=== PATIENT | female | born 1975 | race African-American/Black ===

== ENCOUNTER 2018-06-26 13:19 | Inpatient (IN) | payer OTHER ==
[~2018-06-26] VITALS: Ht 167.6 cm; Wt 105.9 kg
[~2018-06-26 13:19] MED LIST: AMOXICILLIN875 M1 PO; BENTYL20 MG PO; BENZONATATE200 M1 PO; BLM PO; DELTASONE20 MG PO; EDARBYCLOR 40-1 EAC1 PO; FLEXERIL10 MG PO; HYDRODIURIL 112.5 M1 PO; IBUPROFEN800 M1 PO; LABETALOL HCL300 M1 PO; LEVSIN-SL0.125 MG PO; LEVSIN0.125 MG PO; MEDROL DOSEPAK1 PAC PO; NORVASC10 M1 PO; PERCOCET 325 MG1 TA2 PO; PERCOCET 325 MG1 TAB PO; SPIRONOLACTONE50 MG PO; TEGRETOL200 MG PO; TESSALON PERLE100 MG PO; VITAMIN D250000 UNIT PO; ZITHROMAX250 M2 PO; ZOFRAN ODT4 M1 PO; ZOFRAN4 M1 SL
[2018-06-26 15:06] LABS: ABSOLUTE BASOPHIL COUNT 0 /CUMM (0.0-0.2); ABSOLUTE EOSINOPHIL COUNT 0 /CUMM (0.0-0.7); ABSOLUTE GRANULOCYTE CT 9.8 /CUMM (1.4-6.5); ABSOLUTE LYMPH COUNT 0.9 /CUMM (1.2-3.4); ABSOLUTE MONOCYTE COUNT 0.5 /CUMM (0.10-0.60); BASOPHIL % 0.4 % (0.0-2.0); EOSINOPHIL % 0.3 % (0-5); GRANULOCYTE % 86.5 % (42.2-75.2); HEMATOCRIT 41.3 % (37-47); MEAN CORPUSCULAR HGB 24.3 PG (27.0-31.0); MEAN CORPUSCULAR HGB CONC 31.1 G/DL (33.0-37.0); MEAN CORPUSCULAR VOLUME 78.3 FL (81.0-99.0); MEAN PLATELET VOLUME 8.9 FL (7.4-10.4); PLATELET COUNT 345 /CUMM (130-400); RBC DISTRIBUTION WIDTH 16.4 % (11.5-14.5); RED BLOOD CELL CT 5.28 /CUMM (4.20-5.40); WHITE BLOOD CELL COUNT 11.3 /CUMM (4.8-10.8)
--- NOTE | 2018-06-26 15:25 | CT SCAN REPORT ---
EXAMINATION: CT ABDOMEN AND PELVIS WITHOUT CONTRAST CLINICAL INFORMATION: Swelling in the lower abdomen, cellulitis. Rule out deep abscess. Status post tubal ligation. COMPARISON: CT scan of the abdomen and pelvis dated 04/22/2015 and 01/03/2014. TECHNIQUE: Multidetector volumetric imaging was performed from the superior aspect of the liver through the pubic symphysis. Sagittal and coronal reformatted images were obtained on the technologist workstation. DLP: 1581.99 mGy-cm. FINDINGS: LUNG BASES: The visualized lung bases are unremarkable. LIVER, GALLBLADDER, AND BILIARY TREE: The liver is normal in size, shape, and attenuation. No focal hepatic lesion on noncontrast imaging. No biliary ductal dilatation is present. The gallbladder is unremarkable with no evidence of radiopaque gallstones, gallbladder wall thickening, or obvious pericholecystic inflammatory changes. PANCREAS: Unremarkable on noncontrast imaging. SPLEEN, ADRENAL GLANDS: Unremarkable on noncontrast imaging. KIDNEYS AND URETERS: The kidneys are normal in size, shape, and attenuation. No hydronephrosis, hydroureter, or calculi seen. No perinephric stranding. BLADDER: Unremarkable. PELVIC VISCERA: The patient is status post total abdominal hysterectomy and probable oophorectomy. No suspicious adnexal mass. No focal fluid collection or pelvic abscess seen. GASTROINTESTINAL TRACT: There is moderate sigmoid colonic diverticulosis with no evidence of acute diverticulitis. The small and large bowel are otherwise unremarkable. The appendix is unremarkable. ABDOMINAL WALL: There is extensive cutaneous and subcutaneous thickening and edema seen in the anterior lower abdominal pannus, consistent with clinical history given of cellulitis. No defined abscess cavity is seen and the findings are confined to the superficial soft tissues and do not extend down to the abdominal wall. LYMPH NODES, VASCULAR: Unremarkable. OSSEOUS STRUCTURES: There is moderate degenerative disc disease at the lumbosacral junction with disc space narrowing and bulky marginal spur formation, which also projects posteriorly into the spinal canal without causing significant spinal stenosis. Mild posterior disc osteophyte complex is also seen at at L2-3, similar to prior exam. Multilevel vertebral spondylosis is seen. IMPRESSION: 1. Extensive cutaneous and superficial subcutaneous soft tissue edema is seen in the lower abdominal pannus, consistent with clinical history of cellulitis. No defined abscess collection is seen. 2. Status post total abdominal hysterectomy with no evidence of intra-abdominal abscess. 3. Moderate sigmoid colonic diverticulosis without evidence of acute diverticulitis.
--- NOTE | 2018-06-26 18:28 | ED SKIN/ALLERGY COMPLAINT ---
History of Present Illness General Chief Complaint: Abdominal Pain/Flank Pain Stated Complaint: LOWER ABD PAIN Source: patient Exam Limitations: no limitations Vital Signs & Intake/Output Vital Signs & Intake/Output Vital Signs Date Time Temp Pulse Resp B/P B/P Pulse O2 O2 Flow FiO2 Mean Ox Delivery Rate 06/27 0106 100.7 107 20 119/56 91 Room Air 06/26 2052 100 Room Air 06/26 2051 99.2 104 20 125/71 97 Room Air 06/26 1841 99.0 110 20 132/81 98 Room Air 06/26 1527 90 18 140/79 99 Room Air 06/26 1408 99.9 92 18 141/81 96 Room Air ED Intake and Output 06/27 0000 06/26 1200 Intake Total 100 Output Total Balance 100 Intake, IV 100 Patient 313 lb Weight Weight Reported by Patient Measurement Method Allergies Coded Allergies: metoclopramide (ANXIETY 01/30/18) Reconcile Medications Amlodipine (Norvasc 5MG Tab) 5 MG TABLET 1 TAB PO DAILY BP (Reported) Amoxicillin 875 MG TABLET 1 TAB PO BID PNA Azilsartan Med/Chlorthalidone (Edarbyclor 40-25 MG Tablet) 1 EACH TABLET 1 TAB PO DAILY HEART (Reported) Azithromycin (Zithromax) 250 MG TABLET 1 DP PO AD bronchitis 2 the first day followed by 1 for days 2-5 Benzonatate 200 MG CAPSULE 1 CAP PO TIDPRN cough Carbamazepine (Tegretol) 200 MG TABLET 1 TAB PO BID TRIGENINAL NEURALGIA ( Reported) Ergocalciferol (Vitamin D2) (Vitamin D2) 50,000 UNIT CAPSULE 1 CAP PO QW SUPPLEMENT (Reported) Hydrochlorothiazide (Hydrodiuril 12.5 MG Tab) 12.5 MG CAPSULE 1 CAP PO DAILY BP (Reported) Hyoscyamine Sulfate (Levsin-Sl) 0.125 MG TAB.SUBL 1 TAB PO Q6P PRN abd pain Ibuprofen 800 MG TABLET 1 TAB PO TID pain Labetalol Hydrochloride (Labetalol HCl) 200 MG TAB 1 TAB PO BID BP (Reported) Ondansetron (Zofran Odt) 4 MG TAB.RAPDIS 1 TAB PO Q6P PRN nausea Prednisone (Deltasone) 20 MG TABLET 1 TAB PO DAILY BRONCHITIS Spironolactone 50 MG TABLET 1 TAB PO DAILY BP (Reported) Triage Note: 42 Y/O FEMALE C/O SUDDEN ONSET PAIN TO ENTIRE ABDOMEN, ONSET 1030AM. PT STATES SHE ROLLED OVER IN BED AND NOTICED ACUTE PAIN TO STOMACH. PT REPORTS NAUSEA, DENIES VOMITING. TEMP 99.9 IN TRIAGE. EVAL'D BY GLORIA REYNOLDS IN TRIAGE - SKIN IN C/O PAIN NOTED TO BE RED WITH WARMTH Triage Nurses Notes Reviewed? yes Onset: Abrupt Duration: day(s): Timing: recent history : No Patient currently breastfeeds: No HPI: 42-year Female comes into the emergency room for further evaluation of swelling and pain to abdomen. Associated fever chills body aches. Denies any trauma.. Patient has a history of diabetes. Pain is sharp throbbing. Continuous. (Nick Phipps) Past History Travel History Traveled to [place] past 21 day No Medical History Any Pertinent Medical History? see below for history Neurological: NONE EENT: NONE Cardiovascular: hypertension, HEART MURMUR Respiratory: NONE Gastrointestinal: NONE Hepatic: NONE Renal: chronic kidney disease Musculoskeletal: rheumatoid arthritis Psychiatric: NONE Endocrine: diabetes Blood Disorders: NONE Cancer(s): NONE Surgical History Surgical History: , ADRENALECTOMY TUBAL LIGATION Psychosocial History What is your primary language American Tobacco Use: Never used Family History Hx Contributory? No (Nick Phipps) Review of Systems Review of Systems Constitutional: Reports: no symptoms. EENTM: Reports: no symptoms. Respiratory: Reports: no symptoms. Cardiovascular: Reports: no symptoms. GI: Reports: no symptoms. Genitourinary: Reports: no symptoms. Musculoskeletal: Reports: see HPI. Skin: Reports: see HPI. Neurological/Psychological: Reports: no symptoms. Hematologic/Endocrine: Reports: no symptoms. Immunologic/Allergic: Reports: no symptoms. All Other Systems: Reviewed and Negative (Nick Phipps) Physical Exam Physical Exam General Appearance: well developed/nourished, mild distress Head: atraumatic Eyes: Bilateral: normal appearance. Ears, Nose, Throat: normal ENT inspection, hearing grossly normal Neck: normal inspection Respiratory: normal breath sounds, no respiratory distress Cardiovascular: regular rate/rhythm Gastrointestinal: soft, tenderness, large area of erythema covering the entire lower abdominal wall below the umbilicus to right lower suprapubic and left lower quadrants, warm to touch, well demarcated borders, erythema, Back: normal inspection Extremities: normal inspection, normal range of motion, no edema Neurologic/Psych: awake, alert, oriented x 3, normal mood/affect Skin: rash (see above) (Luis Enrique CASTRO,Nick) Progress Differential Diagnosis: abscess/cellulitis, sepsis, abscess, Plan of Care: Orders Procedure Date/time Status Consistent Carbohydrate 3 06/27 B Active CBC WITHOUT DIFFERENTIAL 06/27 06 Active BASIC ELECTROLYTES PLUS BUN&CR 06/27 06 Active FingerStick- Glucose 06/27 UNK Active Saline Lock 06/26 2346 Active Pathway - chart 06/26 2346 Active House Staff 06/26 2346 Active Code Status 06/26 2346 Active Weight 06/26 2236 Active Teach/Educate 06/26 2236 Active Pain Treatment and Response 06/26 2236 Active Nutritional Intake, Monitor 06/26 2236 Active Isolation 06/26 2236 Active Patient Care Conference 06/26 2236 Active Activity/Ambulation 06/26 2236 Active Patient Data 06/26 1953 Active Misc Message 06/26 194 Active ED Holding Orders 06/26 194 Active Admit to inpatient 06/26 194 Active Vital Signs 06/26 194 Active Code Status 06/26 194 Complete Intake & Output 06/26 1825 Active LACTIC ACID 06/26 1712 Complete BLOOD CULTURE 06/26 1412 Active URINALYSIS 06/26 1412 Complete LIPASE 06/26 1412 Complete LACTIC ACID 06/26 1412 Complete WESTERGREN SED RATE 06/26 1412 Complete C-REACTIVE PROTEIN 06/26 1412 Complete COMPREHENSIVE METABOLIC PANEL 06/26 1412 Complete CBC WITHOUT DIFFERENTIAL 06/26 1412 Complete VTE Mechanical Prophylaxis 06/26 UNK Active Vital Signs 06/26 UNK Active Heat/Cold Therapy 06/26 UNK Active Activity/Ambulation 06/26 UNK Active Current Medications Sig/Ana Start time Last Medication Dose Stop Time Status Admin Polyethylene Glycol 17 GM AT BEDTIME 06/27 2100 AC (Miralax) Senna/Docusate Sodium 1 TAB AT BEDTIME 06/27 2100 AC (Senokot S) Enoxaparin Sodium 40 MG DAILY 06/27 0900 AC (Lovenox) Insulin Aspart 0 TIDAC 06/27 0800 UNVr (NovoLOG) Cefazolin Sodium 1,000 MG Q8 06/27 06 AC (Kefzol-Ancef Inj) Acetaminophen 650 MG Q6P PRN 06/26 2345 UNVr (Tylenol) Acetaminophen 1,000 MG Q6P PRN 06/26 234 UNVr (Ofirmev) Hydromorphone HCl 0.5 MG Q4P PRN 06/26 234 AC (Dilaudid) Laboratory Tests 06/26/18 1800: Lactic Acid 1.6, Urine Color YEL, Urine Clarity CLEAR, Urine pH 5.5, Ur Specific [place] >= 1.030, Urine Protein NEG, Urine Ketones NEG, Urine Nitrite NEG, Urine Bilirubin NEG, Urine Urobilinogen 0.2, Ur Leukocyte Esterase NEG, Ur Microscopic EXAM NOT REQUIRED, Urine Hemoglobin NEG, Urine Glucose NEG 06/26/18 1455: Anion Gap 10, Estimated GFR 36 L, BUN/Creatinine Ratio 13.1, Glucose 98, Lactic Acid 1.5, Calcium 9.5, Total Bilirubin 0.4, AST 16, ALT 22, Alkaline Phosphatase 67, C-Reactive Prot, Quant 0.7, Total Protein 7.4, Albumin 4.0, Globulin 3.4, Albumin/Globulin Ratio 1.2, Lipase 32, CBC w Diff MAN DIFF ORDERED, RBC 5.28, MCV 78.3 L, MCH 24.3 L, MCHC 31.1 L, RDW 16.4 H, MPV 8.9, Gran % 86.5 H, Lymphocytes % 8.4 L, Monocytes % 4.4, Eosinophils % 0.3, Basophils % 0.4, Absolute Granulocytes 9.8 H, Absolute Lymphocytes 0.9 L, Absolute Monocytes 0.5, Absolute Eosinophils 0, Absolute Basophils 0, Platelet Estimate ADEQUATE, Poikilocytosis FEW, Anisocytosis 1+, Target Cells FEW, ESR Westergren 22 H Microbiology 06/26 1800 BLOOD: Blood Culture - RECD 06/26 1455 BLOOD: Blood Culture - RECD Diagnostic Imaging: Viewed by Me: CT Scan. Discussed w/RAD: CT Scan. Radiology Impression: PATIENT: IBRAHIMA MILLER PRESENT AGE: 42 PATIENT ACCOUNT NO: [id number] : 77 LOCATION: [facility] ORDERING PHYSICIAN: Nick CASTRO SERVICE DATE: 06/26/18 EXAM TYPE : CAT - CT ABD & PELVIS W/O IV CONTRAS EXAMINATION: CT ABDOMEN AND PELVIS WITHOUT CONTRAST CLINICAL INFORMATION: Swelling in the lower abdomen, cellulitis. Rule out deep abscess. Status post tubal ligation. COMPARISON: CT scan of the abdomen and pelvis dated 04/22/2015 and 01/03/2014. TECHNIQUE: Multidetector volumetric imaging was performed from the superior aspect of the liver through the pubic symphysis. Sagittal and coronal reformatted images were obtained on the technologist workstation. DLP: 1581.99 mGy-cm. FINDINGS: LUNG BASES: The visualized lung bases are unremarkable. LIVER, GALLBLADDER, AND BILIARY TREE: The liver is normal in size, shape, and attenuation. No focal hepatic lesion on noncontrast imaging. No biliary ductal dilatation is present. The gallbladder is unremarkable with no evidence of radiopaque gallstones, gallbladder wall thickening, or obvious pericholecystic inflammatory changes. PANCREAS: Unremarkable on noncontrast imaging. SPLEEN, ADRENAL GLANDS: Unremarkable on noncontrast imaging. KIDNEYS AND URETERS: The kidneys are normal in size, shape, and attenuation. No hydronephrosis, hydroureter, or calculi seen. No perinephric stranding. BLADDER: Unremarkable. PELVIC VISCERA: The patient is status post total abdominal hysterectomy and probable oophorectomy. No suspicious adnexal mass. No focal fluid collection or pelvic abscess seen. GASTROINTESTINAL TRACT: There is moderate sigmoid colonic diverticulosis with no evidence of acute diverticulitis. The small and large bowel are otherwise unremarkable. The appendix is unremarkable. ABDOMINAL WALL: There is extensive cutaneous and subcutaneous thickening and edema seen in the anterior lower abdominal pannus, consistent with clinical history given of cellulitis. No defined abscess cavity is seen and the findings are confined to the superficial soft tissues and do not extend down to the abdominal wall. LYMPH NODES, VASCULAR : Unremarkable. OSSEOUS STRUCTURES: There is moderate degenerative disc disease at the lumbosacral junction with disc space narrowing and bulky marginal spur formation, which also projects posteriorly into the spinal canal without causing significant spinal stenosis. Mild posterior disc osteophyte complex is also seen at at L2-3, similar to prior exam. Multilevel vertebral spondylosis is seen. IMPRESSION: 1. Extensive cutaneous and superficial subcutaneous soft tissue edema is seen in the lower abdominal pannus, consistent with clinical history of cellulitis. No defined abscess collection is seen. 2. Status post total abdominal hysterectomy with no evidence of intra-abdominal abscess. 3. Moderate sigmoid colonic diverticulosis without evidence of acute diverticulitis. DICTATED BY: Donna Vega MD DATE/TIME DICTATED:06/26/181509 GENERATION MECHANIC HELPER:JOSE DATE/TIME TRANSCRIBED:06/26/181509 CONFIDENTIAL, DO NOT COPY WITHOUT APPROPRIATE AUTHORIZATION. <Electronically signed in Other Vendor System> SIGNED BY: Donna Vega MD 06/26/18 1525 (Nick Phipps) Departure Departure Disposition: STILL A PATIENT Condition: Stable Clinical Impression Primary Impression: Cellulitis, abdominal wall Referrals: Corona Oropeza MD (PCP/Family) Departure Forms: Customer Survey General Discharge Information Admission Note Spoke With: Josh Duke MD Documentation of Exam: Documentation of any treatments & extenuating circumstances including Concerns Regarding Discharge (functional status, medication knowledge or non-compliance, living conditions, etc.) that warrant an admission rather than observation: Patient will require IV antibiotics. Diabetic. High risk. Vomiting here in the emergency room. Medically not safe for discharge. (Nick Phipps) Admission Note Documentation of Exam: Documentation of any treatments & extenuating circumstances including Concerns Regarding Discharge (functional status, medication knowledge or non-compliance, living conditions, etc.) that warrant an admission rather than observation: PA/BORDER MEASURER AND CUTTER Co-Sign Statement Statement: ED Attending supervision documentation- [X] I saw and evaluated the patient. I have also reviewed all the pertinent lab results and diagnostic results. I agree with the findings and the plan of care as documented in the PA's/BORDER MEASURER AND CUTTER's documentation. [X] I have reviewed the ED Record and agree with the PA's/BORDER MEASURER AND CUTTER's documentation. [] Additions or exceptions (if any) to the PAs/BORDER MEASURER AND CUTTER's note and plan are summarized below: [Patient to be admitted for IV fluids, IV antibiotics, endocrine consult] (Loreta WALLACE,Silvio Rodríguez)
--- NOTE | 2018-06-26 20:32 | History & Physical ---
Francisco JavierRai 06/26/182031: General Information and HPI MD Statement: I have seen and personally examined IBRAHIMA MILLER and documented this H&P. The patient is a 42 year old F who presented with a patient stated chief complaint of [stomach area sargent]. Source of Information: patient Exam Limitations: no limitations History of Present Illness: 42 year old morbidly obese female with history of diabetes mellitus, not on insulin, and CKD stage III presents with pain on her abdomen, involving her panniculus. Around 10:30am this morning, while the patient was preparing for work, she felt severe, burning pain in her panniculus that felt like her intestines were twisting and caused her to vomit twice. The patient felt like she could hardly walk as a result of this pain, and so she came to be seen in the ED. She additionally felt bodily chills and a warm sensation overlying the panniculus. She denied chest pain, diaphoresis, light-headedness, diarrhea. She denied any prior history of skin infections, any recent trauma to the area, sick contacts. She is a non-smoker, reports social ETOH use and denies other illicit drugs. Allergies/Medications Allergies: Coded Allergies: metoclopramide (ANXIETY 01/30/18) Compliance With Home Meds: GOOD Past History Travel History Traveled to [place] past 21 day No Medical History Neurological: NONE EENT: NONE Cardiovascular: hypertension, HEART MURMUR Respiratory: NONE Gastrointestinal: NONE Hepatic: NONE Renal: chronic kidney disease Musculoskeletal: rheumatoid arthritis Psychiatric: NONE Endocrine: diabetes Blood Disorders: NONE Cancer(s): NONE Surgical History Surgical History: , ADRENALECTOMY TUBAL LIGATION Review of Systems Review of Systems Constitutional: Reports: chills. Denies: diaphoresis, fever, weakness. Cardiovascular: Denies: chest pain, edema, palpitations, peripheral edema. Respiratory: Denies: cough, short of breath, wheezing. GI: Reports: abdominal pain (superficial), vomiting. Denies: constipation, diarrhea , nausea. Skin: Reports: erythema (pannus, lower abdomen). Denies: lesions. Neurological/Psychological: Denies: confusion, headache, numbness, paresthesia, tingling. Exam & Diagnostic Data Last 24 Hrs of Vital Signs/I&O Vital Signs Date Time Temp Pulse Resp B/P B/P Pulse O2 O2 Flow FiO2 Mean Ox Delivery Rate 06/27 0106 100.7 107 20 119/56 91 Room Air 06/26 2052 100 Room Air 06/26 2051 99.2 104 20 125/71 97 Room Air 06/26 1841 99.0 110 20 132/81 98 Room Air 06/26 1527 90 18 140/79 99 Room Air 06/26 1408 99.9 92 18 141/81 96 Room Air Intake & Output 06/27 0800 06/27 0000 06/26 1600 Intake Total 100 Output Total Balance 100 Intake, IV 100 Patient 141.974 kg 141.974 kg Weight Weight Reported by Patient Reported by Patient Measurement Method Physical Exam General Appearance Alert, Oriented X3, Cooperative, No Acute Distress Skin Erythematous area overlying the lower abdominal panniculus Skin Temp/Moisture Exam: Warm/Dry HEENT Atraumatic, PERRLA, EOMI, Mucous Membr. moist/pink Cardiovascular Regular Rate, Normal S1, Normal S2, No Murmurs Lungs Clear to Auscultation, Normal Air Movement Abdomen Normal Bowel Sounds, Soft, Tender to light touch on the lower abdomen Last 24 Hrs of Labs/Kwasi: Laboratory Tests 06/26/18 1800: Lactic Acid 1.6, Urine Color YEL, Urine Clarity CLEAR, Urine pH 5.5, Ur Specific [place] >= 1.030, Urine Protein NEG, Urine Ketones NEG, Urine Nitrite NEG, Urine Bilirubin NEG, Urine Urobilinogen 0.2, Ur Leukocyte Esterase NEG, Ur Microscopic EXAM NOT REQUIRED, Urine Hemoglobin NEG, Urine Glucose NEG 06/26/18 1455: Anion Gap 10, Estimated GFR 36 L, BUN/Creatinine Ratio 13.1, Glucose 98, Lactic Acid 1.5, Calcium 9.5, Total Bilirubin 0.4, AST 16, ALT 22, Alkaline Phosphatase 67, C-Reactive Prot, Quant 0.7, Total Protein 7.4, Albumin 4.0, Globulin 3.4, Albumin/Globulin Ratio 1.2, Lipase 32, CBC w Diff MAN DIFF ORDERED, RBC 5.28, MCV 78.3 L, MCH 24.3 L, MCHC 31.1 L, RDW 16.4 H, MPV 8.9, Gran % 86.5 H, Lymphocytes % 8.4 L, Monocytes % 4.4, Eosinophils % 0.3, Basophils % 0.4, Absolute Granulocytes 9.8 H, Absolute Lymphocytes 0.9 L, Absolute Monocytes 0.5, Absolute Eosinophils 0, Absolute Basophils 0, Platelet Estimate ADEQUATE, Poikilocytosis FEW, Anisocytosis 1+, Target Cells FEW, ESR Westergren 22 H Microbiology 06/26 1800 BLOOD: Blood Culture - RECD 06/26 1455 BLOOD: Blood Culture - RECD Assessment/Plan Assessment: 42 year old morbidly obese female with history of diabetes mellitus and CKD stage III presenting with pain and erythema of her panniculus, likely representing cellulitis. Patient was afebrile upon presentation, but had slight leukocytosis with left- shift. CT Abdomen/Pelvis: Extensive cutaneous and superficial subcutaneous soft tissue edema is seen in the lower abdominal pannus, consistent with clinical history of cellulitis. No defined abscess collection is seen. Problems: 1. Cellulitis 2. Morbid obesity 3. CKD stage III 4. Diabetes mellitus Plan: -Admit to general medicine -Begin Cefazolin 1000mg IV Q8H -No abscess or drainable collection is found to culture, monitor response to antibiotics -Insulin sliding scale -Hgb A1C -Consider infectious disease consult if cellulitis worsens Full code Diabetic diet ALPS & heparin DVT ppx As Ranked By This Provider Problem List: 1. Abdominal pain 2. Chronic kidney disease 3. Cellulitis Core Measures/Misc (06/26) Acute Coronary Syndrome ACS Diagnosis: No Congestive Heart Failure Congestive Heart Failure Diagnosis No Cerebrovascular Accident CVA/TIA Diagnosis: No VTE (View Protocol) VTE Risk Factors Obesity No Mechanical VTE Prophylaxis d/t N/A MechProphylax Ordered No VTE Pharm Prophylaxis d/t NA PharmProphylax ordered Sepsis (View protocol) Sepsis Present: No If YES complete Sepsis Event Note If YES complete Sepsis Event Note Servando Stock 06/26/18 2205: Core Measures/Misc (06/26) Sepsis (View protocol) If YES complete Sepsis Event Note If YES complete Sepsis Event Note Attending MD Review Statement Attending Statement Attending Assessment/Plan: Addendum by . Patient was seen and examined at bedside today ( 06/26/18) at 8:30Pm. Reviewed the history physical done by the resident. Reviewed the past medical family, family, social history. ROS: 10 point system reviewed and negative except as described above. See the resident note for exam. On my exam: Patient is moderately obese, not in distress. Large abdominal pannus. Area redness, warm to touch, mildly tender in the lower abdominal wall. No obvious drainage, fluctuations, open wounds. Vitals, labs reviewed. a/p: #Abdominal wall cellulitis. No signs of fluid collection or abscess. #Morbid obesity. #Diabetes? #HTN- cr is at baseline, and k is stable, can c/w arb, aldactone and norvasc, monitor bp. # CKD-3, cr was 1.6-at bas[facility]il[facility], watch as pt is on hctz, arb and aldactone at home. Plan: -We will put on cefazolin 1 g every 8 hourly. Monitor if does not improve and consider vancomycin. -Get A1c. Check home medications, continue the sliding scale for now. Can resume home diabetic medications she is on at home. -Weight loss and exercise, diet control was suggested to the patient. Reviewed with the resident. Agree with the rest of the plan as per resident's note. Dr.Ravinder Gale MD. Hospitalist. Pager: [phone], cell: [phone]. Zaire WALLACE,Otf 06/27/18 0184: General Information and HPI Allergies/Medications Home Med list Amlodipine Besylate (Norvasc) 10 MG TABLET 1 TAB PO DAILY HTN (Reported) Amoxicillin 875 MG TABLET 1 TAB PO BID PNA Azilsartan Med/Chlorthalidone (Edarbyclor 40-25 MG Tablet) 1 EACH TABLET 1 TAB PO DAILY HEART (Reported) Azithromycin (Zithromax) 250 MG TABLET 1 DP PO AD bronchitis 2 the first day followed by 1 for days 2-5 Benzonatate 200 MG CAPSULE 1 CAP PO TIDPRN cough Carbamazepine (Tegretol) 200 MG TABLET 1 TAB PO BID TRIGENINAL NEURALGIA ( Reported) Ergocalciferol (Vitamin D2) (Vitamin D2) 50,000 UNIT CAPSULE 1 CAP PO QW SUPPLEMENT (Reported) Hyoscyamine Sulfate (Levsin-Sl) 0.125 MG TAB.SUBL 1 TAB PO Q6P PRN abd pain Ibuprofen 800 MG TABLET 1 TAB PO TID pain Labetalol HCl 300 MG TABLET 1 TAB PO TID HTN (Reported) Ondansetron (Zofran Odt) 4 MG TAB.RAPDIS 1 TAB PO Q6P PRN nausea Prednisone (Deltasone) 20 MG TABLET 1 TAB PO DAILY BRONCHITIS Spironolactone 50 MG TABLET 1 TAB PO DAILY BP (Reported) Core Measures/Misc (06/26) Sepsis (View protocol) If YES complete Sepsis Event Note If YES complete Sepsis Event Note Resident Review Statement Resident Statement: examined this patient, discussed with supply chain intern, agreed with supply chain intern, reviewed EMR data (avail), amended to note Other Findings: Patient is a 42-year-old female with past medical history significant for hypertension, diabetes, CKD presenting this admission with chief complaint of stomach burning. Patient reports that at approximately 10:30 AM on day of admission she started experiencing severe abdominal pain which she characterizes as a burning sensation across her lower abdomen. Reports that the pain started she could barely walk. Denies fever however reports that she did feel warm and reports chills. States she had nausea and 2 episodes of nonbloody emesis in the ED. Patient denies any trauma or cuts or bug bites to the area. Denies any history of skin or soft tissue infections in the past. Denies chest pain, palpitations, shortness of breath, constipation/diarrhea. Patient works as a SALES PROJECT COORDINATOR. Denies any sick contacts. Patient has a cat however denies any scratches or bites. Denies any recent travel. Patient in the ED he received IV Unasyn 3 g 1, morphine 4 mg IV 1, Zofran 4 mg IV 1. Physical exam and labs/imaging as above Patient is a 42-year-old morbidly obese female with past medical history significant for diabetes and chronic kidney disease presenting with a one-day history of abdominal pain, erythema, warmth, tenderness to palpation of her lower abdomen. Findings consistent for cellulitis. CT scan was done which was negative for any abscess or gas. Plan: Admitted to general med Started on cefazolin 1 g every 8 hours Follow-up blood cultures Area of erythema was marked. If patient does not improve consider broadening coverage to vancomycin. Continue home medications DVT prophylaxis: Alps, heparin Code: Full code Diet: Heart healthy
--- NOTE | 2018-06-27 06:25 | PN- Housestaff ---
Yenny Soto 06/27/18 0625: Subjective Follow-up For: Lower Abdominal Cellulitis CKD Stage III Diabetes Subjective: Pt seen and examined at bedside this morning. She has significant burning pain 8 /10 localized to the lower abdomen with the site marked. Slight erythema present with warmth and tenderness to touch. Patient febrile at 100.7 at 1AM this morning with increasing leukocytosis. Otherwise denies nausea, vomiting, diarrhea, shortness of breath or chest pain. Review of Systems Constitutional: Denies: see HPI. Objective Last 24 Hrs of Vital Signs/I&O Vital Signs Date Time Temp Pulse Resp B/P B/P Pulse O2 O2 Flow FiO2 Mean Ox Delivery Rate 06/27 930 98.9 100 20 140/73 06/27 0930 98.9 100 20 140/73 06/27 0930 98.9 100 20 140/73 06/27 0930 98.9 100 20 140/73 96 Room Air 06/27 0625 99.0 97 18 128/78 96 Room Air 06/27 0106 100.7 107 20 119/56 91 Room Air 06/26 2052 100 Room Air 06/26 2051 99.2 104 20 125/71 97 Room Air 06/26 1841 99.0 110 20 132/81 98 Room Air 06/26 1527 90 18 140/79 99 Room Air 06/26 1408 99.9 92 18 141/81 96 Room Air Intake & Output 06/27 1600 06/27 0800 06/27 0000 Intake Total 100 100 Output Total Balance 100 100 Intake, IV 100 100 Patient 313 lb Weight Weight Reported by Patient Measurement Method Physical Exam General Appearance: Alert, Oriented X3, Cooperative, Mild Distress Skin: lower abdomen marked with pen; slight erythema; no drainage/pus or abscess formation Skin Temp/Moisture Exam: Warm/Dry HEENT: Mucous Membr. moist/pink Neck: Supple Cardiovascular: Normal S1, Normal S2 Lungs: Clear to Auscultation, Normal Air Movement Abdomen: tender to palpation at sight of erythema marked with pen; no drainage/ pus; normal bowel sounds Neurological: Normal Speech Extremities: No Edema Vascular: Normal Pulses, Pulses Symmetrical Current Medications: Current Medications Sig/Ana Start time Last Medication Dose Route Stop Time Status Admin Acetaminophen 0 .STK-MED ONE 06/27 0130 DC IV Acetaminophen 650 MG Q6P PRN 06/26 2345 AC PO Acetaminophen 1,000 MG Q6P PRN 06/26 2345 AC 06/27 IV 0145 Amlodipine Besylate 10 MG DAILY 06/27 0900 AC 06/27 PO 0930 Ampicillin Sodium/ 0 .STK-MED ONE 06/26 1812 DC Sulbactam Sodium .ROUTE Ampicillin Sodium/ 3,000 MG ONCE ONE 06/26 1545 DC 06/26 Sulbactam Sodium IV 06/26 1614 1817 Sodium Chloride 100 ML Carbamazepine 200 MG BID 06/27 0900 AC 06/27 PO 0930 Cefazolin Sodium 1,000 MG Q8 06/27 0600 AC 06/27 IV 0610 Cefazolin Sodium 0 .STK-MED ONE 06/27 0553 DC .ROUTE Chlorthalidone 25 MG DAILY 06/27 0900 AC 06/27 PO 0930 Enoxaparin Sodium 40 MG DAILY 06/27 0900 CAN SC Heparin Sodium 5,000 UNIT Q8 06/27 0600 AC 06/27 (Porcine) SC 0608 Heparin Sodium 0 .STK-MED ONE 06/27 0553 DC (Porcine) .ROUTE Hydromorphone HCl 0.5 MG Q4P PRN 06/26 2345 AC IV Insulin Aspart 0 TIDAC 06/27 0800 AC SC Labetalol HCl 300 MG TID 06/27 0900 AC 06/27 PO 0930 Losartan Potassium 25 MG DAILY 06/27 0900 AC 06/27 PO 0930 Morphine Sulfate 0 .STK-MED ONE 06/26 2325 DC .ROUTE Morphine Sulfate 6 MG ONCE ONE 06/26 2315 DC 06/26 IV 06/26 2316 2326 Morphine Sulfate 0 .STK-MED ONE 06/26 1852 DC .ROUTE Morphine Sulfate 4 MG ONCE ONE 06/26 1830 DC 06/26 IV 06/26 183 185 Ondansetron HCl 4 MG ONCE ONE 06/26 1915 DC 06/26 IV 06/26 191 185 Ondansetron HCl 0 .STK-MED ONE 06/26 185 DC .ROUTE Polyethylene Glycol 17 GM AT BEDTIME 06/27 2100 AC PO Senna/Docusate Sodium 1 TAB AT BEDTIME 06/27 2100 AC PO Spironolactone 50 MG DAILY 06/27 0900 AC 06/27 PO 0930 Last 24 Hrs of Lab/Kwasi Results Last 24 Hrs of Labs/Mics: Laboratory Tests 06/27/18 0605: Anion Gap 6, Estimated GFR 33 L, BUN/Creatinine Ratio 11.8, Hemoglobin A1c 6.3 H, CBC w Diff MAN DIFF ORDERED, RBC 4.59, MCV 77.8 L, MCH 25.1 L, MCHC 32.2 L , RDW 16.0 H, MPV 8.9, Gran % 86.4 H, Lymphocytes % 8.3 L, Monocytes % 5.2, Eosinophils % 0.1, Basophils % 0, Absolute Granulocytes 11.2 H, Segmented Neutrophils 84 H, Absolute Lymphocytes 1.1 L, Lymphocytes 10 L, Monocytes 6, Absolute Monocytes 0.7 H, Absolute Eosinophils 0, Absolute Basophils 0, Platelet Estimate Z, Hypochromic-Microcytic 1+, Anisocytosis 1+, Microcytic Cells 1+, Ovalocytes FEW, Fld Total RBCs Counted 100 06/26/18 1800: Lactic Acid 1.6, Urine Color YEL, Urine Clarity CLEAR, Urine pH 5.5, Ur Specific [place] >= 1.030, Urine Protein NEG, Urine Ketones NEG, Urine Nitrite NEG, Urine Bilirubin NEG, Urine Urobilinogen 0.2, Ur Leukocyte Esterase NEG, Ur Microscopic EXAM NOT REQUIRED, Urine Hemoglobin NEG, Urine Glucose NEG 06/26/18 1455: Anion Gap 10, Estimated GFR 36 L, BUN/Creatinine Ratio 13.1, Glucose 98, Lactic Acid 1.5, Calcium 9.5, Total Bilirubin 0.4, AST 16, ALT 22, Alkaline Phosphatase 67, C-Reactive Prot, Quant 0.7, Total Protein 7.4, Albumin 4.0, Globulin 3.4, Albumin/Globulin Ratio 1.2, Lipase 32, CBC w Diff MAN DIFF ORDERED, RBC 5.28, MCV 78.3 L, MCH 24.3 L, MCHC 31.1 L, RDW 16.4 H, MPV 8.9, Gran % 86.5 H, Lymphocytes % 8.4 L, Monocytes % 4.4, Eosinophils % 0.3, Basophils % 0.4, Absolute Granulocytes 9.8 H, Absolute Lymphocytes 0.9 L, Absolute Monocytes 0.5, Absolute Eosinophils 0, Absolute Basophils 0, Platelet Estimate ADEQUATE, Poikilocytosis FEW, Anisocytosis 1+, Target Cells FEW, ESR Westergren 22 H Microbiology 06/26 1800 BLOOD: Blood Culture - RECD 06/26 1455 BLOOD: Blood Culture - RECD Assessment/Plan Assessment: 42 year old morbidly obese female with history of diabetes mellitus and CKD stage III presenting with pain and erythema of her panniculus, likely representing cellulitis. Patient was afebrile upon presentation, but had slight leukocytosis with left-shift. CT Abdomen/Pelvis: Extensive cutaneous and superficial subcutaneous soft tissue edema is seen in the lower abdominal pannus, consistent with clinical history of cellulitis. No defined abscess collection is seen. 06/27: Day 1 IV Antibiotics on Cefazolin. Febrile 100.7 1AM this morning. Leukocytosis 12.9 today which has elevated from admission. HbA1C: 6.3. PROBLEM LIST: 1. Cellulitis 2. Morbid Obesity 3. CKD Stage III 4. Diabetes Mellitus 5. Hypertension PLAN: * Continue Cefazolin 1G IV Q8, broaden as necessary * ISS wtih accu-checks * Continue home anti-hypertensives: aldactone, losartan, labetalol, clorothiladone, norvasc * Continue carbamazipine for trigeminal neuralgia Code Status: Full Code Diet: Diabetic Diet DVT PPx: ALPS + Heparin Problem List: 1. Chronic kidney disease 2. Abdominal pain 3. Cellulitis, abdominal wall Pain Ratin Pain Location: lower abdominal skin Pain Goal: Pain 4 or less Pain Plan: as per pain pathway Tomorrow's Labs & Rationales: cbc bep Renetta WALLACE,Burak 06/27/18 1648: Attending MD Review Statement Attending Statement Attending MD Statement: examined this patient, discuss w/resident/PA/SALESPERSON RECREATIONAL VEHICLES, agreed w/resident/PA/SALESPERSON RECREATIONAL VEHICLES, reviewed EMR data (avail), discussed with nursing, amended to note Attending Assessment/Plan: Patient seen and examined. Lying in bed. Still complaining of significant lower abdominal pain. Noted to be febrile earlier. Leukocytosis persisted on labs. On examination she has an area of erythema lower abdomen. Erythema is more intense in the suprapubic area with mild induration. No open area. No discharge. No fluctuance palpable. CT abdomen showed no evidence of abscess collection. We will continue therapy for cellulitis and monitor for improvement. Continue pain regimen.
[2018-06-27 06:27] LABS: ABSOLUTE BASOPHIL COUNT 0 /CUMM (0.0-0.2); ABSOLUTE EOSINOPHIL COUNT 0 /CUMM (0.0-0.7); ABSOLUTE GRANULOCYTE CT 11.2 /CUMM (1.4-6.5); ABSOLUTE LYMPH COUNT 1.1 /CUMM (1.2-3.4); ABSOLUTE MONOCYTE COUNT 0.7 /CUMM (0.10-0.60); BASOPHIL % 0 % (0.0-2.0); EOSINOPHIL % 0.1 % (0-5); GRANULOCYTE % 86.4 % (42.2-75.2); MEAN CORPUSCULAR HGB 25.1 PG (27.0-31.0); MEAN CORPUSCULAR HGB CONC 32.2 G/DL (33.0-37.0); MEAN CORPUSCULAR VOLUME 77.8 FL (81.0-99.0); MEAN PLATELET VOLUME 8.9 FL (7.4-10.4); PLATELET COUNT 287 /CUMM (130-400); RED BLOOD CELL CT 4.59 /CUMM (4.20-5.40); WHITE BLOOD CELL COUNT 12.9 /CUMM (4.8-10.8)
[2018-06-27 06:32] LABS: HEMATOCRIT 35.7 % (37-47)
[2018-06-27 10:41] VITALS: BP 129/79
[2018-06-27 14:33] VITALS: BP 111/49
[2018-06-27 22:43] VITALS: BP 132/73
[2018-06-28 07:03] VITALS: BP 127/77
[2018-06-28 09:27] LABS: ABSOLUTE BASOPHIL COUNT 0 /CUMM (0.0-0.2); ABSOLUTE EOSINOPHIL COUNT 0 /CUMM (0.0-0.7); ABSOLUTE GRANULOCYTE CT 10.7 /CUMM (1.4-6.5); ABSOLUTE LYMPH COUNT 1.1 /CUMM (1.2-3.4); ABSOLUTE MONOCYTE COUNT 0.7 /CUMM (0.10-0.60); BASOPHIL % 0 % (0.0-2.0); EOSINOPHIL % 0.1 % (0-5); HEMATOCRIT 35.3 % (37-47); MEAN CORPUSCULAR HGB 24.5 PG (27.0-31.0); MEAN CORPUSCULAR HGB CONC 31.7 G/DL (33.0-37.0); MEAN CORPUSCULAR VOLUME 77.4 FL (81.0-99.0); MEAN PLATELET VOLUME 9.6 FL (7.4-10.4); PLATELET COUNT 303 /CUMM (130-400); RBC DISTRIBUTION WIDTH 16.4 % (11.5-14.5); RED BLOOD CELL CT 4.57 /CUMM (4.20-5.40); WHITE BLOOD CELL COUNT 12.5 /CUMM (4.8-10.8)
[2018-06-28 10:18] LABS: GRANULOCYTE % 85.5 % (42.2-75.2)
--- NOTE | 2018-06-28 11:58 | PN- Housestaff ---
Yenny Soto 06/28/18 0658: Subjective Follow-up For: Lower Abdominal Cellulitis CKD Stage III Diabetes Subjective: Pt seen and examined at bedside today. She continues to have burning pain at the site of cellulitis that is worse when standing up. She has been afebrile overnight although tachycardic in AM at 105. WBC count 12.5 from 12.9. Patient claims to be nauseous. Denies vomiting, diarrhea, fevers, chills, shortness of breath, chest pain. Review of Systems Constitutional: Denies: see HPI. Objective Last 24 Hrs of Vital Signs/I&O Vital Signs Date Time Temp Pulse Resp B/P B/P Pulse O2 O2 Flow FiO2 Mean Ox Delivery Rate 06/28 0804 100 127/77 06/28 0804 100 127/77 06/28 0803 100 127/77 06/28 0703 99.4 100 18 127/77 97 Room Air 06/27 2243 99.4 105 18 132/73 94 Room Air 06/27 2118 105 132/73 06/27 1433 99.4 104 20 111/49 95 Room Air 06/27 1428 104 Intake & Output 06/28 1600 06/28 0800 06/28 0000 Intake Total 120 240 Output Total 350 Balance -230 240 Intake, Oral 120 240 Output, Urine 350 Patient 322 lb Weight Physical Exam General Appearance: Alert, Oriented X3, Cooperative, Mild Distress Skin: Lower abdominal erythema/swelling, not significantly changed from yesterday, no drainage/discharge Skin Temp/Moisture Exam: Warm/Dry Sepsis Skin Exam (color): Normal for Ethnicity HEENT: Mucous Membr. moist/pink Neck: Supple Cardiovascular: Normal S1, Normal S2 Lungs: Clear to Auscultation Abdomen: Soft, tender to palpation, normal bowel sounds, soft, obese Extremities: No Edema Vascular: Normal Pulses Current Medications: Current Medications Sig/Ana Start time Last Medication Dose Route Stop Time Status Admin Acetaminophen 650 MG Q6P PRN 06/26 2345 AC 06/27 PO 0949 Acetaminophen 1,000 MG Q6P PRN 06/26 2345 DC 06/27 IV 0145 Amlodipine Besylate 10 MG DAILY 06/27 900 AC 06/28 PO 08 Carbamazepine 200 MG BID 06/27 900 AC 06/28 PO 0804 Cefazolin Sodium 1,000 MG Q8 06/27 0600 AC 06/28 IV 0518 Chlorthalidone 25 MG DAILY 06/27 09 AC 06/28 PO 0808 Heparin Sodium 5,000 UNIT Q8 06/27 0600 AC 06/28 (Porcine) SC 0518 Hydromorphone HCl 1 MG Q4P PRN 06/28 1015 AC IV Hydromorphone HCl 0.5 MG Q4P PRN 06/26 2345 DC 06/28 IV 0525 Insulin Aspart 0 TIDAC 06/27 08 AC SC Labetalol HCl 300 MG TID 06/27 09 AC 06/28 PO 0804 Losartan Potassium 25 MG DAILY 06/27 09 06/28 PO 0803 Ondansetron HCl 4 MG ONCE ONE 06/27 1645 DC 06/27 PO 06/27 1646 1641 Ondansetron HCl 0 .STK-MED ONE 06/27 1644 DC PO Patient Medication 1 ED ONE ONE 06/28 1115 DC Teaching ED 06/28 1116 Patient Medication 1 ED ONE ONE 06/27 1800 DC 06/27 Teaching ED 06/27 1801 1852 Polyethylene Glycol 17 GM AT BEDTIME 06/27 2100 AC 06/27 PO 2117 Senna/Docusate Sodium 1 TAB AT BEDTIME 06/27 2100 06/27 PO 2117 Spironolactone 50 MG DAILY 06/27 09 06/28 PO 0803 Last 24 Hrs of Lab/Kwasi Results Last 24 Hrs of Labs/Mics: Laboratory Tests 06/28/18 0649: Anion Gap 10, Estimated GFR 33 L, BUN/Creatinine Ratio 10.6, CBC w Diff NO MAN DIFF REQ, RBC 4.57, MCV 77.4 L, MCH 24.5 L, MCHC 31.7 L, RDW 16.4 H, MPV 9.6 , Gran % 85.5 H, Lymphocytes % 9.1 L, Monocytes % 5.3, Eosinophils % 0.1, Basophils % 0, Absolute Granulocytes 10.7 H, Absolute Lymphocytes 1.1 L, Absolute Monocytes 0.7 H, Absolute Eosinophils 0, Absolute Basophils 0 Assessment/Plan Assessment: 42 year old morbidly obese female with history of diabetes mellitus and CKD stage III presenting with pain and erythema of her panniculus, likely representing cellulitis. Patient was afebrile upon presentation, but had slight leukocytosis with left-shift. CT Abdomen/Pelvis: Extensive cutaneous and superficial subcutaneous soft tissue edema is seen in the lower abdominal pannus, consistent with clinical history of cellulitis. No defined abscess collection is seen. 06/28: Day 2 IV Antibiotics on Cefazolin. Afebrile in past 24 hours. Leukocytosis 12.5 today which has elevated from admission. Dilaudid increased to 0.5 to 1mg q4. PROBLEM LIST: 1. Cellulitis 2. Morbid Obesity 3. CKD Stage III 4. Diabetes Mellitus 5. Hypertension PLAN: * Continue Cefazolin 1G IV Q8, broaden as necessary * ISS wtih accu-checks * Continue home anti-hypertensives: aldactone, losartan, labetalol, clorothiladone, norvasc * Continue carbamazipine for trigeminal neuralgia * PAIN: Dilaudid 1mg q4, Tylenol PO Code Status: Full Code Diet: Diabetic Diet DVT PPx: ALPS + Heparin Problem List: 1. Cellulitis, abdominal wall 2. Chronic kidney disease Pain Ratin Pain Location: Panniculus lower abdomen Pain Goal: Pain 4 or less Pain Plan: as per pain pathway Tomorrow's Labs & Rationales: cbc bep Renetta WALLACE,Burak 06/28/18 1218: Attending MD Review Statement Attending Statement Attending MD Statement: examined this patient, discuss w/resident/PA/PAGE MAKEUP SYSTEM OPERATOR, agreed w/resident/PA/PAGE MAKEUP SYSTEM OPERATOR, reviewed EMR data (avail), discussed with nursing, amended to note Attending Assessment/Plan: Patient seen and examined. Lying in bed. Continues to complain of lower abdominal pain. Reports the pain is not adequately controlled on the current dose of Dilaudid. Afebrile this morning. Laboratory data shows persistent leukocytosis though mildly improved from yesterday. Chronic microcytic anemia not significantly changed. Renal function is also unchanged. Blood cultures so far are negative. On examination persistent erythema in the lower abdomen with persistent more focal area of induration. No open area. No discharge. recommendations: -Continue current course of intravenous antibiotic therapy. -Advised pain control by increasing dose of Dilaudid to 1 mg every 4 hours as needed pain. -Patient advised to mobilize as tolerated.
[2018-06-28 14:40] VITALS: BP 116/72
[2018-06-28 22:19] VITALS: BP 146/90
[2018-06-29 06:57] VITALS: BP 113/73
--- NOTE | 2018-06-29 07:01 | PN- Housestaff ---
Yenny Soto 06/29/18 0701: Subjective Follow-up For: Lower Abdominal Cellulitis CKD Stage III Diabetes Subjective: Pt seen and examined at bedside today. She continues to have burning pain at the site of cellulitis that has improved today. She was able to get out of bed with less pain (5/10). She has been afebrile overnight with resolved leukocytosis. Patient denies nausea, vomiting, diarrhea, fevers, chills, shortness of breath, chest pain. Review of Systems Constitutional: Denies: see HPI. Objective Last 24 Hrs of Vital Signs/I&O Vital Signs Date Time Temp Pulse Resp B/P B/P Pulse O2 O2 Flow FiO2 Mean Ox Delivery Rate 06/29 0943 91 150/68 06/29 0943 91 150/68 06/29 0942 91 150/68 06/29 0657 98.7 87 18 113/73 96 06/28 2219 100.1 95 18 146/90 92 Room Air 06/28 2102 100.1 06/28 1954 146/90 06/28 1449 96 116/72 06/28 1440 98.2 96 20 116/72 96 Room Air Intake & Output 06/29 1600 06/29 0800 06/29 0000 Intake Total 480 480 Output Total Balance 480 480 Intake, Oral 480 480 Patient 234 lb Weight Physical Exam General Appearance: Alert, Oriented X3, Cooperative Skin: Lower abdominal erythema marked with pen Skin Temp/Moisture Exam: Warm/Dry HEENT: Mucous Membr. moist/pink Neck: Supple Cardiovascular: Normal S1, Normal S2 Lungs: Clear to Auscultation, Normal Air Movement Abdomen: lower abdominal tenderness at site of marked erythema Neurological: Normal Speech Extremities: trace pedal edema Vascular: Normal Pulses Current Medications: Current Medications Sig/Ana Start time Last Medication Dose Route Stop Time Status Admin Acetaminophen 650 MG Q6P PRN 06/26 2345 AC 06/28 PO 210 Amlodipine Besylate 10 MG DAILY 06/27 900 AC 06/29 PO 942 Carbamazepine 200 MG BID 06/27 900 AC 06/29 PO 09 Cefazolin Sodium 1,000 MG Q8 06/27 06 AC 06/29 IV 0540 Chlorthalidone 25 MG DAILY 06/27 900 AC 06/29 PO 0944 Heparin Sodium 5,000 UNIT Q8 06/27 600 AC 06/29 (Porcine) SC 0540 Hydromorphone HCl 1 MG Q4P PRN 06/28 1015 AC IV Insulin Aspart 0 TIDAC 06/27 800 AC SC Labetalol HCl 300 MG TID 06/27 900 AC 06/29 PO 0942 Losartan Potassium 25 MG DAILY 06/27 900 AC 06/29 PO 0943 Polyethylene Glycol 1 GAL ONCE ONE 06/28 1930 CAN PO 06/28 1931 Polyethylene Glycol 17 GM AT BEDTIME 06/27 2100 AC 06/28 PO 1957 Senna/Docusate Sodium 1 TAB AT BEDTIME 06/27 2100 AC 06/28 PO 1950 Spironolactone 50 MG DAILY 06/27 900 AC 06/29 PO 43 Last 24 Hrs of Lab/Kwasi Results Last 24 Hrs of Labs/Mics: Laboratory Tests 06/29/18 0645: Anion Gap 11, Estimated GFR 33 L, BUN/Creatinine Ratio 12.9, CBC w Diff NO MAN DIFF REQ, RBC 4.75, MCV 77.8 L, MCH 24.7 L, MCHC 31.8 L, RDW 16.4 H, MPV 9.5 , Gran % 65.4, Lymphocytes % 21.8, Monocytes % 11.7 H, Eosinophils % 0.9, Basophils % 0.2, Absolute Granulocytes 4.9, Absolute Lymphocytes 1.6, Absolute Monocytes 0.9 H, Absolute Eosinophils 0.1, Absolute Basophils 0 Assessment/Plan Assessment: 42 year old morbidly obese female with history of diabetes mellitus and CKD stage III presenting with pain and erythema of her panniculus, likely representing cellulitis. Patient was afebrile upon presentation, but had slight leukocytosis with left-shift. CT Abdomen/Pelvis: Extensive cutaneous and superficial subcutaneous soft tissue edema is seen in the lower abdominal pannus, consistent with clinical history of cellulitis. No defined abscess collection is seen. 06/29: Day 3 IV Antibiotics on Cefazolin. T max 100.1 in past 24 hours. Leukocytosis resolved today. Improved lower abdominal erythema. PROBLEM LIST: 1. Cellulitis 2. Morbid Obesity 3. CKD Stage III 4. Diabetes Mellitus 5. Hypertension PLAN: * Continue Day 3 Cefazolin 1G IV Q8, broaden as necessary * ISS wt accu-checks * Continue home anti-hypertensives: aldactone, losartan, labetalol, clorothiladone, norvasc * Continue carbamazipine for trigeminal neuralgia * PAIN: Dilaudid 1mg q4, Tylenol PO Code Status: Full Code Diet: Diabetic Diet DVT PPx: ALPS + Heparin Problem List: 1. Cellulitis, abdominal wall 2. Chronic kidney disease Pain Ratin Pain Location: lower abdominal Pain Goal: Pain 4 or less Pain Plan: as per pain pathway Tomorrow's Labs & Rationales: cbc bep Burak Jackson MD 06/29/18 1126: Attending MD Review Statement Attending Statement Attending MD Statement: examined this patient, discuss w/resident/PA/[employer], agreed w/resident/PA/[employer], reviewed EMR data (avail), discussed with nursing, discussed with case mgmt, amended to note Attending Assessment/Plan: Patient is doing much better today on all objective measures. T-max is 100.1 from yesterday. Leukocytosis is resolved on labs. She reports feeling better and reports less pain. On examination area of erythema has improved as well as area of swelling. It is less tender to touch as well. Her blood cultures have returned back negative. We will continue with IV antibiotic therapy over the next 24-28 hours. If she continues to show evidence of clinical improvement will transition to oral antibiotic therapy and complete a 10 day course of treatment. Patient is in agreement with a blood pressure was in the 150s systolic plan. With regard to her chronic disease, her renal function is stable and blood glucose level is acceptable. Her blood pressure has been acceptable during this admission. This morning however her blood pressure was in the 150s systolic. Will monitor closely.
[2018-06-29 08:24] LABS: ABSOLUTE BASOPHIL COUNT 0 /CUMM (0.0-0.2); ABSOLUTE EOSINOPHIL COUNT 0.1 /CUMM (0.0-0.7); ABSOLUTE GRANULOCYTE CT 4.9 /CUMM (1.4-6.5); ABSOLUTE LYMPH COUNT 1.6 /CUMM (1.2-3.4); ABSOLUTE MONOCYTE COUNT 0.9 /CUMM (0.10-0.60); BASOPHIL % 0.2 % (0.0-2.0); EOSINOPHIL % 0.9 % (0-5); GRANULOCYTE % 65.4 % (42.2-75.2); MEAN CORPUSCULAR HGB 24.7 PG (27.0-31.0); MEAN CORPUSCULAR HGB CONC 31.8 G/DL (33.0-37.0); MEAN CORPUSCULAR VOLUME 77.8 FL (81.0-99.0); MEAN PLATELET VOLUME 9.5 FL (7.4-10.4); PLATELET COUNT 336 /CUMM (130-400); RBC DISTRIBUTION WIDTH 16.4 % (11.5-14.5); RED BLOOD CELL CT 4.75 /CUMM (4.20-5.40); WHITE BLOOD CELL COUNT 7.4 /CUMM (4.8-10.8)
[2018-06-29 14:17] VITALS: BP 118/58
[2018-06-29 22:10] VITALS: BP 130/70
[2018-06-30 07:00] VITALS: BP 107/52
--- NOTE | 2018-06-30 07:02 | PN- Housestaff ---
Yenny Soto 06/30/18 0702: Subjective Follow-up For: Lower Abdominal Cellulitis CKD Stage III Diabetes Mellitus Subjective: Pt seen and examined at bedside this morning. She claims she feels better and the swelling has gone down. She has pain when she gets up but has been feeling nauseous due to the pain medication last night. Otherwise, no fevers, chills, diarrhea, shortness of breath, chest pain overnight. Stable for discharge today. Review of Systems Constitutional: Denies: see HPI. Objective Last 24 Hrs of Vital Signs/I&O Vital Signs Date Time Temp Pulse Resp B/P B/P Pulse O2 O2 Flow FiO2 Mean Ox Delivery Rate 06/29 2210 98.5 86 20 130/70 93 Room Air 06/29 203 130/70 06/29 1417 98.6 94 20 118/58 98 Room Air 06/29 1355 94 118/58 06/29 0943 91 150/68 06/29 0943 91 150/68 06/29 0942 91 150/68 Intake & Output 06/30 0800 06/30 0000 06/29 1600 Intake Total 480 480 600 Output Total 1200 Balance 480 -720 600 Intake, Oral 480 480 600 Number 1 Bowel Movements Output, Urine 1200 Physical Exam General Appearance: Alert, Oriented X3, Cooperative, No Acute Distress Skin: lower abdominal erythema marked and decreased; wrinkled; no discharge Skin Temp/Moisture Exam: Warm/Dry HEENT: Mucous Membr. moist/pink Neck: Supple, No JVD Cardiovascular: Normal S1, Normal S2 Lungs: Clear to Auscultation Abdomen: Soft, tender to palpation in lower abdomen Neurological: Strength at 5/5 X4 Ext Extremities: No Edema Vascular: Normal Pulses Current Medications: Current Medications Sig/Ana Start time Last Medication Dose Route Stop Time Status Admin Acetaminophen 650 MG Q6P PRN 06/26 2345 AC 06/29 PO 234 Amlodipine Besylate 10 MG DAILY 06/27 900 AC 06/29 PO 43 Carbamazepine 200 MG BID 06/27 900 AC 06/29 PO 2032 Cefazolin Sodium 1,000 MG Q8 06/27 600 AC 06/30 IV 0500 Chlorthalidone 25 MG DAILY 06/27 900 AC 06/29 PO 943 Heparin Sodium 5,000 UNIT Q8 06/27 600 AC 06/30 (Porcine) SC 0500 Hydromorphone HCl 1 MG Q4P PRN 06/28 1015 AC 06/29 IV 1417 Insulin Aspart 0 TIDAC 06/27 0800 AC 06/29 SC 1353 Labetalol HCl 300 MG TID 06/27 900 AC 06/29 PO 2032 Losartan Potassium 25 MG DAILY 06/27 900 AC 06/29 PO 942 Ondansetron HCl 4 MG ONCE ONE 06/29 1830 DC 06/29 PO 06/29 1831 1920 Polyethylene Glycol 17 GM AT BEDTIME 06/27 2100 AC 06/29 PO 2032 Senna/Docusate Sodium 1 TAB AT BEDTIME 06/27 2100 AC 06/29 PO 2032 Spironolactone 50 MG DAILY 06/27 900 AC 06/29 PO 942 Last 24 Hrs of Lab/Kwasi Results Last 24 Hrs of Labs/Mics: Laboratory Tests 06/30/18 0643: Sodium Pending, Potassium Pending, Chloride Pending, Carbon Dioxide Pending, Anion Gap Pending, BUN Pending, Creatinine Pending, BUN/Creatinine Ratio Pending , CBC w Diff Pending, WBC Pending, RBC Pending, Hgb Pending, Hct Pending, MCV Pending, MCH Pending, MCHC Pending, RDW Pending, Plt Count Pending, MPV Pending Assessment/Plan Assessment: 42 year old morbidly obese female with history of diabetes mellitus and CKD stage III presenting with pain and erythema of her panniculus, likely representing cellulitis. Patient was afebrile upon presentation, but had slight leukocytosis with left-shift. CT Abdomen/Pelvis: Extensive cutaneous and superficial subcutaneous soft tissue edema is seen in the lower abdominal pannus, consistent with clinical history of cellulitis. No defined abscess collection is seen. 06/30: Day 4 IV Antibiotics on Cefazolin will discharge on Oral Keflex for 7 more days to complete course. T max 100.1 in past 24 hours. Leukocytosis resolved. Improved lower abdominal erythema and pain. Stable for discharge today as per medical team. Will provide with note for work. PROBLEM LIST: 1. Cellulitis 2. Morbid Obesity 3. CKD Stage III 4. Diabetes Mellitus 5. Hypertension PLAN: * Discharge Today * Continue Day 4 Cefazolin 1G IV Q8 - will send out on oral Keflex for 7 more days * ISS wtih accu-checks; finger sticks in low 100s * Continue home anti-hypertensives: aldactone, losartan, labetalol, clorothiladone, norvasc * Continue carbamazipine for trigeminal neuralgia * PAIN: Oral Percocet now; discontinued dilaudid Code Status: Full Code Diet: CC3 DVT PPx: ALPS + Heparin Problem List: 1. Cellulitis, abdominal wall Pain Ratin Pain Location: lower abdominal Pain Goal: Pain 4 or less Pain Plan: as per pain pathway Tomorrow's Labs & Rationales: BEP - CKD III/KIM Burak Jackson MD 06/30/18 1027: Attending MD Review Statement Attending Statement Attending MD Statement: examined this patient, discuss w/resident/PA/CONCESSIONIST, agreed w/resident/PA/CONCESSIONIST, reviewed EMR data (avail), discussed with nursing, discussed with case mgmt, amended to note Attending Assessment/Plan: Patient seen and examined. Much more jovial today. Afebrile. Hemodynamically stable. White cell count remains within normal limits on labs today. On examination area of erythema and swelling has significantly improved. She still admits to some abdominal pain but states that it has improved significantly from presentation. At this point in time she is medically stable to be discharged home. She is to continue on Keflex to complete her antibiotic course. We have advised to follow-up with her primary care provider next week for reevaluation.
--- NOTE | 2018-06-30 07:50 | Patient Discharge Instructions ---
Discharge Instructions General Discharge Information You were seen/treated for: Lower Abdominal Cellulitis CKD Stage III Special Instructions: Please follow up with PCP within 1-2 weeks of discharge. Please conitnue oral antibiotics as prescribed: Keflex 4 times a day with food for 7 more days. Return to ED with worsening fevers, chills, pain, swelling, nausea, vomiting, diarrhea. Acute Coronary Syndrome Inclusion Criteria At DC or during hospital stay patient has or had the following: ACS DIAGNOSIS No Discharge Core Measures Meds if any: Prescribed or Continued at Discharge Meds if any: NOT Prescribed or Continued at Discharge Congestive Heart Failure Inclusion Criteria At DC or during hospital stay patient has or had the following: CHF DIAGNOSIS No Discharge Core Measures Meds if any: Prescribed or Continued at Discharge Meds if any: NOT Prescribed or Continued at Discharge Cerebrovascular accident Inclusion Criteria At DC or during hospital stay patient has or had the following: CVA/TIA Diagnosis No Discharge Core Measures Meds if any: Prescribed or Continued at Discharge Meds if any: NOT Prescribed or Continued at Discharge Venous thromboembolism Inclusion Criteria VTE Diagnosis No VTE Type NONE VTE Confirmed by (Test) NONE Discharge Core Measures - Per Current guidelines, there needs to be overlap - treatment for the first 5 days of Warfarin therapy. - If discharged on Warfarin prior to 5 days of - overlap therapy, the patient will need to be - assessed for post discharge needs including - *Post discharge parental anticoagulation - *Warfarin and/or parental anticoagulation education - *Follow up date to check INR post discharge At least 5 days overlap therapy as Inpatient No Meds if any: Prescribed or Continued at Discharge Note: Overlap Therapy is Warfarin and Anticoagulant Meds if any: NOT Prescribed or Continued at Discharge
[2018-06-30 08:06] LABS: ABSOLUTE BASOPHIL COUNT 0 /CUMM (0.0-0.2); ABSOLUTE EOSINOPHIL COUNT 0.1 /CUMM (0.0-0.7); ABSOLUTE GRANULOCYTE CT 5.7 /CUMM (1.4-6.5); ABSOLUTE LYMPH COUNT 1.8 /CUMM (1.2-3.4); ABSOLUTE MONOCYTE COUNT 0.6 /CUMM (0.10-0.60); BASOPHIL % 0.1 % (0.0-2.0); EOSINOPHIL % 1.7 % (0-5); GRANULOCYTE % 69.5 % (42.2-75.2); MEAN CORPUSCULAR HGB 24.3 PG (27.0-31.0); MEAN CORPUSCULAR HGB CONC 31.3 G/DL (33.0-37.0); MEAN CORPUSCULAR VOLUME 77.5 FL (81.0-99.0); MEAN PLATELET VOLUME 9.3 FL (7.4-10.4); PLATELET COUNT 359 /CUMM (130-400); RBC DISTRIBUTION WIDTH 16.4 % (11.5-14.5); RED BLOOD CELL CT 4.77 /CUMM (4.20-5.40); WHITE BLOOD CELL COUNT 8.1 /CUMM (4.8-10.8)
[2018-06-30 08:18] VITALS: BP 107/52
[2018-06-30] MEDS ORDERED: NEURONTIN300 M1 PO (08:19)
[2018-06-30] MEDS ORDERED: TRADJENTA5 M1 PO (08:19)
[2018-06-30] MEDS ORDERED: CALCITRIOL0.25 MC1 PO (08:21)
[2018-06-30] MEDS ORDERED: ALDACTONE50 M1 PO (08:22)
[2018-06-30] MEDS ORDERED: PERCOCET 5-3251 EACH PO (09:46)
[2018-06-30] MEDS ORDERED: KEFLEX500 M1 PO (09:46)
--- NOTE | 2018-06-30 10:25 | Discharge Summary ---
Visit Information Visit Dates Admission Date: 06/26/18 Discharge Date: 06/30/18 Hospital Course Course Attending Physician: Burak Jackson MD Primary Care Physician: Sandip WALLACE,Corona Hernadez Hospital Course: HOSPITAL COURSE: 42 year old morbidly obese female with history of diabetes mellitus, not on insulin, and CKD stage III presents with pain on her abdomen, involving her panniculus. Around 10:30am morning of admission 06/26/18, while the patient was preparing for work, she felt severe, burning pain in her panniculus that felt like her intestines were twisting and caused her to vomit twice. The patient felt like she could hardly walk as a result of this pain, and so she came to be seen in the ED. She additionally felt bodily chills and a warm sensation overlying the panniculus. She denied chest pain, diaphoresis, light- headedness, diarrhea. She denied any prior history of skin infections, any recent trauma to the area, sick contacts. She is a non-smoker, reports social ETOH use and denies other illicit drugs. EMERGENCY DEPARTMENT: Patient was afebrile upon presentation, but had slight leukocytosis with left- shift. CT Abdomen/Pelvis: Extensive cutaneous and superficial subcutaneous soft tissue edema is seen in the lower abdominal pannus, consistent with clinical history of cellulitis. No defined abscess collection is seen. GENERAL MEDICINE: Problem List: 1. Cellulitis 2. Morbid obesity 3. CKD stage III 4. Diabetes mellitus COURSE: Patient admitted to general medicine floor for further monitoring evaluation and treatment. Patient was started on Cefazolin 1000mg IV Q8H. CBC, BEP monitored daily. Patient came in with leukocytosis of 11.3 which resolved to 8.1 upon discharge. Treated with 3 Days of IV Cefazolin and discharged on Keflex 4 times a day for 7 more days to complete a 10 day course. 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 Blood cultures were negative prior to discharge. Patient afebrile prior to discharge. Provided with a note to return to her physical therapy for back pain. Pain was adequately controlled with 0.5-1mg IV dilaudid q4 and switched to oral percocet before discharge. She was given a prescription for oral percocet for 5 days (10 pills BID). Home medications were continued including cabramazpine for trigeminal neuralgia, anti-hypertensives: aldactone, losartan, labetalol, clorothiladone, norvasc. Code Status: Full Code Diet: CC3 DVT PPx: ALPS + Heparin Allergies: Coded Allergies: metoclopramide (ANXIETY 01/30/18) Disposition Summary Disposition Principal Diagnosis: Cellulitis Additional Diagnosis: CKD Stage III Discharge Disposition: home or self care Discharge Instructions General Discharge Information Code Status: Full Code Patient's Diet: Consistent Carbohydrate 3 Patient's Activity: As tolerated Follow-Up Instructions/Appts: Please follow up with PCP within 1-2 weeks of discharge. Please conitnue oral antibiotics as prescribed: Keflex 4 times a day with food for 7 more days. Return to ED with worsening fevers, chills, pain, swelling, nausea, vomiting, diarrhea. Medications at Discharge Discharge Medications: Continue taking these medications: Labetalol HCl (Labetalol HCl) 300 MG TABLET 1 Tablet ORAL THREE TIMES DAILY Carbamazepine (Tegretol) 200 MG TABLET 1 Tablet ORAL TWICE DAILY Qty = 120 Amlodipine Besylate (Norvasc) 10 MG TABLET 1 Tablet ORAL DAILY Ergocalciferol (Vitamin D2) (Vitamin D2) 50,000 UNIT CAPSULE 1 Capsule ORAL Once a Week Qty = 4 Azilsartan Med/Chlorthalidone (Edarbyclor 40-25 MG Tablet) 1 EACH TABLET 1 Tablet ORAL DAILY Qty = 30 Gabapentin (Neurontin) 300 MG CAPSULE 1 Capsule ORAL Every night Qty = 30 Linagliptin (Tradjenta) 5 MG TABLET 1 Tablet ORAL DAILY Qty = 30 Calcitriol (Calcitriol) 0.25 MCG CAPSULE 1 Capsule ORAL DAILY Spironolactone (Aldactone) 50 MG TABLET 1 Tablet ORAL DAILY Start taking the following new medications: Cephalexin (Keflex) 500 MG CAPSULE 1 Capsule ORAL 4 TIMES DAY Qty = 28 No Refills Oxycodone HCl/Acetaminophen (Percocet 5-325 MG Tablet) 5 MG-325 MG TABLET 1 Tablet ORAL TWICE DAILY Qty = 10 No Refills Copies To: Sandip WALLACE,Corona Hernadez
== END 2018-06-30 11:58 | DRG 383 ==
LOC: ERH 13:19 → 2NB 19:46 → ERHI 19:46 → ENRESERV 06-27 03:34 → CANRESERV 06-27 03:34 → ERHI 06-27 07:49 → ENRESERV 06-27 09:15 → ENTRNSPT 06-27 09:50 → EDTRNSPTSTS 06-27 10:01 → EDTRNSPT 06-27 10:01 → 2NB 06-27 10:09 → CMPTRNSPT 06-27 10:20 → ENPENDDIS 06-30 09:58 → 2NB 06-30 11:58
PROVIDERS: Physical Medicine & Rehabilitation Pain Medicine; Physician Assistant Medical; Student in an Organized Health Care Education/Training Program
DX: L03.311 Cellulitis of abdominal wall (principal); I12.9 Hypertensive chronic kidney disease with stage 1 through stage 4 chronic kidney disease, or unspecified chronic kidney disease; E11.22 Type 2 diabetes mellitus with diabetic chronic kidney disease; N18.3 Chronic kidney disease, stage 3 (moderate); Z79.84 Long term (current) use of oral hypoglycemic drugs; M06.9 Rheumatoid arthritis, unspecified; E66.01 Morbid (severe) obesity due to excess calories; Z68.43 Body mass index [BMI] 50.0-59.9, adult; D50.9 Iron deficiency anemia, unspecified; Z98.51 Tubal ligation status
CPT/HCPCS: 2NBP; ERO; 36592; 74176; 81003; 82436; 87040; 96374; 96375; J0131; J0690; J1644; J1650; J2405; J3101